=== PATIENT | male | born 1960 | race Caucasian/White ===

== ENCOUNTER 2019-08-24 14:19 | Emergency (ER) | payer OTHER, SELFPAY ==
[2019-08-24 14:19] VITALS: BP 174/106; PULSE 98; RESP 14; TEMP 36.7; O2SAT 96; BMI 26.6
--- NOTE | 2019-08-24 14:52 | ED.DCSUM_ITS ---
- ER Visit Summary Date of Service: 08/24/19 Chief Complaint: Possible compartment syndrome History of Present Illness: The patient is a 59 M who was sent to the ED for possible compartment syndrome. Around 1 PM, he was moving a heavy executive desk. Fell on his left arm. It briefly pinned his forearm. He says the area is painful and swollen. He had x-rays done which were negative, but the swelling is worsening. He was sent for possible compartment syndrome. He denies numbness or paresthesias. He is right-hand dominant. Denies blood thinner use. Physical Examination: Left distal forearm is diffusely swollen. Skin is tight and slightly shiny. There is a small abrasion in his mid dorsal left forearm, but no other injuries or lacerations. There is mild swelling into his hand. Range of motion seems to be intact. Pulses are intact. Sensation intact. Test Results: Outside x-rays were reviewed. We will check basic labs, CPK. Emergency Department Course and Treatment: Patient treated with IV fluids and morphine while awaiting results. Will contact orthopedics. Dr. Gonzales did not feel that this was compartment syndrome based on the history. I am concerned about the exam. I am concerned if the swelling worsens, he will exhibit later findings concerning for compartment syndrome. I will send the patient to [place] for further care. Had no beds available. The patient was accepted to the [facility] ED, [facility], by Dr. Raya. Treatment Plan: As above Disposition: Discharge Impression: 1. Left forearm injury This note was generated with [employer] dictation software. It may contain incorrect words, spelling, and punctuation that were not noted in review of the chart prior to signing ED Disposition - Plan for ED Patient: Referrals: Merritt Seals DO [Primary Care Provider] -
[2019-08-24] MEDS: Morphine 4 MG/ML Syringe IV (14:54)
[2019-08-24 15:06] LABS: Absolute Neutrophil Count 5.4 X10^3/uL (2.0-7.7); Basophil# 0.04 X10^3/uL; Basophil% 0.5 % (0-1); Eosinophil# 0.15 X10^3/uL; Eosinophils% 1.9 % (0-5); Hematocrit 42.9 % (40-54); Hemoglobin 14.2 g/dL (13.0-16.5); Lymphocyte % 20.1 % (19-41); Mean Corp Hgb Conc 33.1 g/dL (32-36); Mean Corpuscular Hgb 29.6 pg (27.0-32.0); Mean Corpuscular Volume 89.4 fL (80-94); Mean Platelet Vol. 9.3 fl (6.2-12.0); Monocyte# 0.74 X10^3/uL; Monocyte% 9.3 % (0-10); NRBC Flagged by Analyzer 0 % (0-5); Neutrophil # 5.39 X10^3/uL (2.7-7.7); Neutrophil % 67.7 % (47-70); Platelet Count 281 K/mm3 (150-450); RBC Distribution Width CV 12.5 % (11.6-14.6); RBC Distribution Width SD 41.2 fl (35.1-43.9)
[2019-08-24 15:31] LABS: Anion Gap 9 (5-15); BUN 19 mg/dL (7-18); BUN/Creat Ratio 20.6 RATIO (10-20); CPK Total, Creatine Kinase 265 U/L (39-308); Calcium,Total 8.9 mg/dL (8.5-10.1); Chloride 102 mmol/L (98-107); Creatinine, Serum 0.92 mg/dL (0.70-1.30); EST Glomerular Filtration Rate 89 mL/min (>60); Est Glom Filt Rate - Afr Amer 108 mL/min (>60); Estimated Creatinine Clearance 85.39 ml/min; Glucose 134 mg/dL (74-106); Sodium Level 140 mmol/L (136-145)
[2019-08-24] MEDS: 0.9% Normal Saline 1,000 ML 150 ML IV (15:45)
[2019-08-24 16:22] VITALS: BP 165/89; PULSE 82; RESP 17; O2SAT 97
== END 2019-08-24 16:24 | disposition short-term general hospital (02) ==
LOC: ED 14:55
PROVIDERS: Emergency Provider Emergency Medicine; Family Provider Family Medicine; PCP Family Medicine
DX: S59.912A Unspecified injury of left forearm, initial encounter (principal); W08.XXXA Fall from other furniture, initial encounter; Y93.9 Activity, unspecified; Y92.89 Other specified places as the place of occurrence of the external cause; Y99.9 Unspecified external cause status; Z87.891 Personal history of nicotine dependence
CPT/HCPCS: 80048; 82550; 85025; 99284; J7030; A4216

== ENCOUNTER 2022-05-22 23:29 | Observation (INO) | payer OTHER, SELFPAY ==
[2022-05-22 23:30] VITALS: BP 182/98; PULSE 98; RESP 15; TEMP 36.6; O2SAT 97; BMI 27.3
[2022-05-22 23:33] VITALS: BP 182/98; PULSE 98; RESP 15; TEMP 36.6; O2SAT 97
--- NOTE | 2022-05-22 23:56 | EDS_ITS ---
HPI HPI - GI History of Present Illness Chief Complaint: Diarrhea Informant: patient Abdominal Pain/Flank Pain Onset: Days (2) Context: Gradual Onset Timing: Waxes and wanes Quality: Aching, Cramping and Sharp Location: Diffuse (Centered around supraumbilical area) Current Severity: Moderate Maximum Severity: Moderate Worsened by: Food (Shortly after eating dinner) Nausea/Vomiting/Emesis GI Symptom: Positive for Nausea; Negative for Vomiting Diarrhea/Melena/Hematochezia GI Symptom: Positive for Diarrhea; Negative for Melena or Hematochezia Onset: Days (2-3) Stool Quality: Positive for Watery; Negative for Black, Maroon or BRB per rectum Severity: Moderate (Better today though) Associated Symptoms Associated Symptoms: Negative for Dysuria, Frequency, Hematuria or Urgency Narrative Narrative: Patient presenting with abdominal pain, diarrhea which started first, some nausea, initially he was having 8 or 10 bowel movements per day, but that is tapered although he is still having diarrhea. His was ill with vomiting and diarrhea at the beginning of the week, he is presenting on Wednesday, hers lasted 2 days or so when she was better. Initially that is what they thought was going on, but tonight after dinner he became very distended having moderate to severe diffuse crampy abdominal pain centered in the supraumbilical area, and it has not let up after several hours. No history of any abdominal surgeries or prior GI issues according to the patient. PFSH PFSH Medical History no medical history no medical history Home Medications NK 08/24/19 [History Last Taken Unknown] Allergy/AdvReac Type Severity Reaction Status Date / Time No Known Allergies Allergy Verified 05/22/22 23:33 Surgical History no surgical history no surgical history Social History Smoking Status: Former smoker ROS ROS ED Constitutional Constitutional ED: Reports malaise; Denies chills or fever(s) Eyes Eyes: Denies change in vision or diplopia ENT ENT ED: Denies rhinorrhea or sore throat Cardiovascular Cardiovascular: Denies chest pain or palpitations Respiratory/Chest Respiratory/Chest: Denies cough or dyspnea Gastrointestinal Gastrointestinal: Reports abdominal pain, bloating, diarrhea and nausea; Denies hematochezia, melena or vomiting Genitourinary Genitourinary ED: Denies dysuria or hematuria Musculoskeletal Musculoskeletal: Denies back pain or neck pain Integumentary Denies abscess or rash Neurologic Neurologic: Denies headache(s), paresthesias or weakness Psychiatric Psychiatric: Denies anxiety or suicidal thoughts EXAM Physical Exam Const Vital Signs: 05/22/22 23:30 05/22/22 23:33 Temperature 97.8 F 97.8 F Temperature Source Temporal Temporal Pulse Rate 98 98 Respiratory Rate 15 15 Blood Pressure 182/98 H 182/98 H Blood Pressure Mean 126 126 Pulse Ox 97 97 Oxygen Delivery Method Room Air Room Air Positive well nourished and well developed Constitutional Narrative: Uncomfortable, no distress General Appearance ED: well developed and NAD HEENT Reports moist mucous membranes normocephalic and atraumatic Eyes PERRL and EOMs intact bilaterally Neck full ROM and supple Resp normal respiratory effort and clear to auscultation bilaterally Cardio regular rate, regular rhythm and no murmurs GI GI Narrative: Distended. Tender supraumbilical/epigastrium. No guarding or rebound. Otherwise nontender. Auscultation: hypoactive bowel sounds Palpation: soft Back/Spine no CVA tenderness General Back: other FROM Extremity normal to inspection General Extremety ED: Negative for edema, pulses abnormal or tenderness General Extremity: Negative for edema or pulses abnormal Neuro oriented x3, CN's II-XII intact bilaterally and no sensory deficits noted Sensorium / Orientation: awake and alert Motor Exam: strength 5/5 throughout Skin no rashes or lesions noted and no wounds MDM MDM MDM Narrative Medical decision making narrative: Clinically especially since his 's had similar symptoms recently, this is mostly consistent with gastroenteritis. I obtained more of a work-up because of the unusual symptoms that he has not had since he has had gastroenteritis for the last couple days, making sure he did not develop a AAA, bowel obstruction, pancreatitis, hepatitis, or other GI disorder. The labs are unremarkable, his urine is unremarkable, he feels better after dicyclomine, Reglan, Mylanta/simethicone. CT returned showing terminal ileitis and partial small bowel obstruction. He has never had abdominal surgeries in the past. He does not have a history of Crohn's that he knows of. He does not have a surgical abdomen. I discussed with Dr. Miller with GI, he agrees with admitting the patient to observation and he will see him in consultation. In addition, the CT shows hydronephrosis and hydroureter on the left, the patient is not having symptoms or renal colic and there is no sign of an obstruction or renal insufficiency, the etiology of this is unknown but I believe is stable to follow-up with urology as an outpatient. Unknown if this has anything to do with his elevated blood pressures in the 180s, or if it was simply the fact the patient was in pain but this will continue to be monitored. Lab Data Attestation: I reviewed the patient's lab results. Labs: Laboratory Results - last 24 hr 05/23/22 05/23/22 05/23/22 00:10 00:14 00:14 WBC 10.2 RBC 5.02 Hgb 14.7 Hct 45.0 MCV 89.6 MCH 29.3 MCHC 32.7 RDW Std Deviation 41.4 RDW Coeff of Kitty 12.5 Plt Count 288 MPV 9.4 Immature Gran % (Auto) 0.300 Neut % (Auto) 79.8 H Lymph % (Auto) 10.8 L [place] % (Auto) 7.9 Eos % (Auto) 0.9 Baso % (Auto) 0.3 Absolute Neuts (auto) 8.1 H Absolute Lymphs (auto) 1.10 Nucleated RBC % 0 Sodium 136 Potassium 4.2 Chloride 103 Carbon Dioxide 29.0 Anion Gap 4 L BUN 18 Creatinine 0.90 Estim Creat Clear Calc 85.10 Est GFR (MDRD) Af Amer 109 Est GFR (MDRD) Non-Af 90 BUN/Creatinine Ratio 20.0 Glucose 126 H Calcium 9.0 Total Bilirubin 0.50 AST 18 ALT 25 Alkaline Phosphatase 59 Total Protein 7.9 Albumin 3.7 Globulin 4.2 Albumin/Globulin Ratio 0.9 Lipase 79 Urine Color Yellow Urine Clarity Clear Urine pH 6.0 Ur Specific [place] 1.020 Urine Protein 15 H Urine Glucose (UA) Normal Urine Ketones 15 H Urine Occult Blood 50 H Urine Nitrite Negative Urine Bilirubin Negative Urine Urobilinogen Normal Ur Leukocyte Esterase Negative Urine RBC 0 SEEN Urine WBC 0 SEEN Ur Squamous Epith Cells 0 SEEN Urine Bacteria 0 SEEN Urine Mucus 1+ Radiography Diagnostic Testing: Clinical Impression(s) from Imaging Studies Abdomen/Pelvis CT 05/23/22 23:54 IMPRESSION: 1. Prominent terminal ileitis with a secondary partial small bowel obstruction. 2. Sigmoid colonic diverticulosis without evidence of a colonic diverticulitis, colitis, or large intestinal obstruction. No appendicitis. 3. Moderate left hydronephrosis and left hydroureter to the level of the bladder without evidence of a calculus. 4. Moderate bladder wall thickening (9 mm thick) circumferentially with a 4.6 cm diameter very heterogeneous prostate. 5. No other significant abnormalities. Electronically Signed: Norm Barber MD at 1:53 EDT , Discharge Plan Dx/Rx/DC Orders Clinical Impression: Partial small bowel obstruction, Terminal ileitis, Hydronephrosis, left Disposition Disposition: Acute Care Hospital [facility]
[2022-05-23] MEDS: Mag Hydrox/Al Hydrox/Simeth 30 ML UDC PO (00:11)
[2022-05-23] MEDS: Metoclopramide 10 MG/2 ML Vial 5 MG IV (00:11)
[2022-05-23] MEDS: 0.9% Normal Saline 1,000 ML 1000 ML IV (00:11)
[2022-05-23] MEDS: Dicyclomine 10 MG Capsule 20 MG PO (00:11)
[2022-05-23 00:19] LABS: Bacteria 0 SEEN /hpf (None Seen); Red Blood Cells-Urine 0 SEEN /hpf (0-5); Squamous Epithelial Cells - UA 0 SEEN /hpf (0-5); White Blood Cells 0 SEEN /hpf (0-5)
[2022-05-23 00:21] LABS: Glucose, Dipstick Normal (Normal); Ketone-Dipstick 15 mg/dl (Negative); Leukocyte Esterase-Dipstick Negative /ul (Negative); Nitrite-Dipstick Negative (Negative); Occult Blood-Urine 50 /ul (Negative); Protein-Dipstick 15 mg/dl (Negative); Urine Bilirubin Dipstick Negative (Negative); Urine Urobilinogen Normal (Normal)
[2022-05-23 00:25] LABS: Absolute Neutrophil Count 8.1 X10^3/uL (2.0-7.7); Basophil# 0.03 X10^3/uL; Basophil% 0.3 % (0-1); Eosinophil# 0.09 X10^3/uL; Eosinophils% 0.9 % (0-5); Hemoglobin 14.7 g/dL (13.0-16.5); Lymphocyte % 10.8 % (19-41); Mean Corp Hgb Conc 32.7 g/dL (32-36); Mean Corpuscular Hgb 29.3 pg (27.0-32.0); Mean Corpuscular Volume 89.6 fL (80-94); Mean Platelet Vol. 9.4 fl (6.2-12.0); Monocyte% 7.9 % (0-10); NRBC Flagged by Analyzer 0 % (0-5); Neutrophil # 8.14 X10^3/uL (2.7-7.7); Neutrophil % 79.8 % (47-70); Platelet Count 288 K/mm3 (150-450); RBC Distribution Width CV 12.5 % (11.6-14.6); RBC Distribution Width SD 41.4 fl (35.1-43.9); Red Blood Count 5.02 M/mm3 (4.6-6.2); White Blood Count 10.2 K/mm3 (4.4-11.0)
[2022-05-23 00:57] LABS: Color, Urine Yellow (Yellow); Urine Clarity Clear (Clear)
[2022-05-23 01:14] LABS: ALB/GLOB Ratio 0.9 RATIO (0.9-2.4); AST(SGOT) 18 U/L (15-37); Alanine Aminotransfer ALT/SGPT 25 U/L (16-61); Albumin, Serum 3.7 g/dL (3.2-5.0); Alkaline Phosphatase 59 U/L (45-117); Anion Gap 4 (5-15); BUN 18 mg/dL (7-18); Chloride 103 mmol/L (98-107); EST Glomerular Filtration Rate 90 mL/min (>60); Est Glom Filt Rate - Afr Amer 109 mL/min (>60); Globulin 4.2 g/dL (2.2-4.2); Glucose 126 mg/dL (74-106); Lipase 79 U/L (73-393); Potassium 4.2 mmol/L (3.5-5.1); Protein, Total 7.9 g/dL (6.4-8.2); Sodium Level 136 mmol/L (136-145)
[2022-05-23 01:29] LABS: Mucous, Urine 1+ /hpf (<or=2+)
[2022-05-23 02:31] VITALS: BP 169/79; PULSE 97; RESP 15; TEMP 36.9; O2SAT 99
--- NOTE | 2022-05-23 03:20 | PCM.HP.STD ---
HPI - General General Date of Admission: 05/23/22 Date of Service: 05/23/22 Chief Complaint: Abdominal cramps and pain and diarrhea for 3 days HPI Narrative CLAUDIO AUGUSTIN, is a 61 M came to ED for worsening diarrhea and abdominal pain for 3 days. His symptoms started with abdominal pain initially in epigastric and upper abdomen and then migrated to right lower quadrant and then became generalized. Patient has intermittent cramps, colicky in nature, 7-8/10 intensity associated with diarrhea. He has mild nausea but no vomiting yet. No hematemesis melena or hematochezia. Patient has worsening diarrhea with frequency 8 to 9/day. It is clear watery, liquid consistency yellowish in color with no blood. Denies fever or chills. He further said his had stomach bug possible viral infection and he got from her. Denies coming in contact with any sick person. In ED, patient does not have fever. Heart rate in 90s, blood pressure elevated. But on floor, at about 3:30 AM temperature first time, 100.2 ?F. Patient had CT abdomen and pelvis with IV contrast, individually reviewed. Small bowel slightly edematous, inflamed and distended in pelvic area. It is officially reported as partial small bowel obstruction which I do not agree. Also reported moderate left hydronephrosis with left hydroureter without evidence of calculus which I agree. Sigmoid colonic diverticulosis without evidence of diverticulitis or large bowel obstruction. Past medical history: Borderline high blood pressure but patient not taking antihypertensive medication. Denies diabetes, [place], coronary artery disease or stroke. [facility] Medical History no medical history Home Medications NK 08/24/19 [History Last Taken Unknown] Allergy/AdvReac Type Severity Reaction Status Date / Time No Known Allergies Allergy Verified 05/22/22 23:33 Surgical History no surgical history Social History Smoking Status: Former smoker ROS ROS Narrative Constitutional: Reports fatigue and weakness. Feels dehydrated HEENT: Reports systems reviewed and no addt'l complaints, except as documented Respiratory/Chest: Denies chest pain, shortness of breath at rest or with exertion Gastrointestinal: As mentioned in HPI Genitourinary: Denies burning urination or new urinary tract symptoms. Mild decrease in urine output with deep yellow color due to dehydration Musculoskeletal: No joint pain or limited range of motion. Neurologic: Denies seizure-like activity skin: No ulcer. No rash Endocrinology: Reports systems reviewed and no addt'l complaints, except as documented Hematologic/Lymphatic: Reports systems reviewed and no addt'l complaints, except as documented Rest 14 ROS are negative except as mentioned in HPI Vital Signs Vital Signs Vital Signs: 05/22/22 23:30 05/22/22 23:33 05/23/22 02:31 Temperature 97.8 F 97.8 F 98.4 F Temperature Source Temporal Temporal Temporal Pulse Rate 98 98 97 Respiratory Rate 15 15 15 Blood Pressure 182/98 H 182/98 H 169/79 H Blood Pressure Mean 126 126 109 Pulse Ox 97 97 99 Oxygen Delivery Method Room Air Room Air Room Air Weight Weight: 185 lb Body Mass Index (BMI) 27.3 Physical Exam Narrative General: Alert, Oriented x3, Cooperative HEENT: Atraumatic, PERRLA, EOMI, Normocephalic Oral: Oral mucosa dry. No Gingival or Mucosal Lesions/ Ulcerations Neck: Supple, No JVD, Negative Carotid Bruits Lungs: Air entry equal in bilateral lung bases. No crepitation/rhonchi Cardiovascular: Regular rate, Regular Rhythm, Normal S1, Normal S2, No murmurs Abdomen: Soft, mild tenderness over right lower quadrant and hypogastrium. Bowel Sounds Present. No distention : No renal angle tenderness. No suprapubic tenderness. Extremities: No edema, Capillary Refill Less than 3 Seconds Skin: No rashes, No breakdown Musculoskeletal: No Tenderness to Palpation of Joints or Extremities. ROM intact. Neurological: Cranial nerves II-XII grossly intact, DTR 2+/4. No long tract lateralizing sign. Psych/Mental Status: Flat affect. Results Lab / Micro Data Result Diagrams: 05/23/22 00:14 05/23/22 00:14 Labs: Laboratory Results - last 24 hr 05/23/22 00:10: Urine Color Yellow, Urine Clarity Clear, Urine pH 6.0, Ur Specific [place] 1.020, Urine Protein 15 H, Urine Glucose (UA) Normal, Urine Ketones 15 H, Urine Occult Blood 50 H, Urine Nitrite Negative, Urine Bilirubin Negative, Urine Urobilinogen Normal, Ur Leukocyte Esterase Negative, Urine RBC 0 SEEN, Urine WBC 0 SEEN, Ur Squamous Epith Cells 0 SEEN, Urine Bacteria 0 SEEN, Urine Mucus 1+ 08/13/22 00:14: WBC 10.2, RBC 5.02, Hgb 14.7, Hct 45.0, MCV 89.6, MCH 29.3, MCHC 32.7, RDW Std Deviation 41.4, RDW Coeff of Kitty 12.5, Plt Count 288, MPV 9.4, Immature Gran % (Auto) 0.300, Neut % (Auto) 79.8 H, Lymph % (Auto) 10.8 L, [place] % (Auto) 7.9, Eos % (Auto) 0.9, Baso % (Auto) 0.3, Absolute Neuts (auto) 8.1 H, Absolute Lymphs (auto) 1.10, Nucleated RBC % 0 05/23/22 00:14: Sodium 136, Potassium 4.2, Chloride 103, Carbon Dioxide 29.0, Anion Gap 4 L, BUN 18, Creatinine 0.90, Estim Creat Clear Calc 85.10, Est GFR (MDRD) Af Amer 109, Est GFR (MDRD) Non-Af 90, BUN/Creatinine Ratio 20.0, Glucose 126 H, Calcium 9.0, Total Bilirubin 0.50, AST 18, ALT 25, Alkaline Phosphatase 59, Total Protein 7.9, Albumin 3.7, Globulin 4.2, Albumin/Globulin Ratio 0.9, Lipase 79 Radiology Impression Abdomen/Pelvis CT 05/23/22 23:54 IMPRESSION: 1. Prominent terminal ileitis with a secondary partial small bowel obstruction. 2. Sigmoid colonic diverticulosis without evidence of a colonic diverticulitis, colitis, or large intestinal obstruction. No appendicitis. 3. Moderate left hydronephrosis and left hydroureter to the level of the bladder without evidence of a calculus. 4. Moderate bladder wall thickening (9 mm thick) circumferentially with a 4.6 cm diameter very heterogeneous prostate. 5. No other significant abnormalities. Electronically Signed: Norm Barber MD at 1:53 EDT , Assessment & Plan Assessment/Plan (1) Acute gastroenteritis: (2) Hydronephrosis, left: PLAN: Plan This is a 61-year-old patient was admitted with progressive worsening abdominal cramps/pain along with diarrhea for last 3 days. 1. Most probably viral enteritis with other differential diagnosis of Crohn's disease/food poisoning: Patient is being admitted on [facility] floor. IV Ringer lactate for aggressive fluid resuscitation. Monitor intake and output. Clear liquid. COVID-19 PCR, bacteriology panel, stool for C. difficile ordered. Stool for occult blood and lactoferrin ordered. GI consulted from ED. Patient does not have leukocytosis. Electrolytes in normal range. 2. CT finding of left hydronephrosis with hydroureter: There is no evidence of urinary calculus. Moderate bladder wall thickening 9 mm circumferentially with 4.6 cm heterogeneous prostate. Patient might have BPH. BUN/creatinine normal. UA shows clear urine, high normal specific gravity, WBC RBC 0. LE and nitrite negative. IV fluid resuscitation. Patient might need referral for neurologist as an outpatient. 3. Essential hypertension: Patient has borderline high blood pressure as per history. start on 5 mg amlodipine. IV hydralazine for systolic blood pressure more than 180 mmHg. Avoid diuretic, ELVIN/ARB as patient is hypovolemic. Laboratory Results 05/23/22 00:10: Urine Color Yellow, Urine Clarity Clear, Urine pH 6.0, Ur Specific [place] 1.020, Urine Protein 15 H, Urine Glucose (UA) Normal, Urine Ketones 15 H, Urine Occult Blood 50 H, Urine Nitrite Negative, Urine Bilirubin Negative, Urine Urobilinogen Normal, Ur Leukocyte Esterase Negative, Urine RBC 0 SEEN, Urine WBC 0 SEEN, Ur Squamous Epith Cells 0 SEEN, Urine Bacteria 0 SEEN, Urine Mucus 1+ 05/23/22 00:14: WBC 10.2, RBC 5.02, Hgb 14.7, Hct 45.0, MCV 89.6, MCH 29.3, MCHC 32.7, RDW Std Deviation 41.4, RDW Coeff of [place] 12.5, Plt Count 288, MPV 9.4, Immature Gran % (Auto) 0.300, Neut % (Auto) 79.8 H, Lymph % (Auto) 10.8 L, [place] % (Auto) 7.9, Eos % (Auto) 0.9, Baso % (Auto) 0.3, Absolute Neuts (auto) 8.1 H, Absolute Lymphs (auto) 1.10, Nucleated RBC % 0 05/23/22 00:14: Sodium 136, Potassium 4.2, Chloride 103, Carbon Dioxide 29.0, Anion Gap 4 L, BUN 18, Creatinine 0.90, Estim Creat Clear Calc 85.10, Est GFR (MDRD) Af Amer 109, Est GFR (MDRD) Non-Af 90, BUN/Creatinine Ratio 20.0, Glucose 126 H, Calcium 9.0, Total Bilirubin 0.50, AST 18, ALT 25, Alkaline Phosphatase 59, Total Protein 7.9, Albumin 3.7, Globulin 4.2, Albumin/Globulin Ratio 0.9, Lipase 79 05/23/22 00:14: Phosphorus Pending, Magnesium Pending Charges/Coding Visit Charges OBSV E&M: 02613 Initial observation care L3 Procedures Hospitalists Procedures: 29664 Advncd Care Plan 30 Min
[2022-05-23 03:22] VITALS: BMI 27.9
[2022-05-23 03:30] VITALS: BP 180/102; PULSE 103; RESP 16; TEMP 37.9; O2SAT 97
[2022-05-23 03:35] LABS: Magnesium 2.4 mg/dL (1.6-2.6); Phosphorus 2.8 mg/dL (2.5-4.9)
[2022-05-23] MEDS: Lactated Ringers 1,000 ML 125 ML IV ×2 (03:37→11:54)
[2022-05-23] MEDS: amLODIPine 5 MG Tablet PO ×2 (04:25→10:33)
[2022-05-23] MEDS: Enoxaparin 40 MG/0.4 ML Syringe SC (04:26)
[2022-05-23 06:30] LABS: Absolute Lymphocyte Count 0.69 X10^3/uL (0.83-4.51); Absolute Neutrophil Count 5.4 X10^3/uL (2.0-7.7); Basophil# 0.01 X10^3/uL; Basophil% 0.1 % (0-1); Eosinophil# 0.03 X10^3/uL; Eosinophils% 0.4 % (0-5); Hematocrit 41.2 % (40-54); Hemoglobin 13.8 g/dL (13.0-16.5); Lymphocyte # 0.69 X10^3/ul (0.83-4.51); Lymphocyte % 9.5 % (19-41); Mean Corp Hgb Conc 33.5 g/dL (32-36); Mean Corpuscular Hgb 29.2 pg (27.0-32.0); Mean Corpuscular Volume 87.1 fL (80-94); Mean Platelet Vol. 9.4 fl (6.2-12.0); Monocyte# 1.09 X10^3/uL; NRBC Flagged by Analyzer 0 % (0-5); Neutrophil # 5.43 X10^3/uL (2.7-7.7); Neutrophil % 74.6 % (47-70); Platelet Count 258 K/mm3 (150-450); RBC Distribution Width CV 12.2 % (11.6-14.6); RBC Distribution Width SD 39.4 fl (35.1-43.9); Red Blood Count 4.73 M/mm3 (4.6-6.2); White Blood Count 7.3 K/mm3 (4.4-11.0)
[2022-05-23 06:58] LABS: Anion Gap 6 (5-15); BUN 15 mg/dL (7-18); BUN/Creat Ratio 18.5 RATIO (10-20); Calcium,Total 8.6 mg/dL (8.5-10.1); Chloride 103 mmol/L (98-107); Creatinine, Serum 0.81 mg/dL (0.70-1.30); EST Glomerular Filtration Rate 102 mL/min (>60); Est Glom Filt Rate - Afr Amer 123 mL/min (>60); Estimated Creatinine Clearance 94.56 ml/min; Glucose 132 mg/dL (74-106); Potassium 3.9 mmol/L (3.5-5.1); Sodium Level 136 mmol/L (136-145)
[2022-05-23 10:27] VITALS: BP 138/78; PULSE 88; RESP 20; TEMP 36.1; O2SAT 96
--- NOTE | 2022-05-23 13:23 | PCM.CONS.GEN ---
Assessment & Plan Assessment/Plan (1) Terminal ileitis: PLAN: The differential diagnosis for terminal ileitis would be inflammatory bowel disease in particular Crohn's disease of the terminal ileum, Yersinia infection of the small bowel and other enteric pathogens, lymphoma or other small bowel. His stool studies thus far show blood in his stool and white blood cells which could indicate infection or inflammatory bowel disease and less likely malignancy. I would await his stool culture to see if it is positive for infection. I will also send ESR, CRP, LDH, ANCA, AUSTEN comprehensive metabolic profile. Patient would like a lot of the work-up if possible at [facility] because his is an employee there. (2) Partial small bowel obstruction: PLAN: Patient's abdomen is a little bit softer as he has been having bowel movements. He has been able to decompress somewhat without the use of an NG tube. I think he would benefit from a colonoscopy with intubation of the terminal ileum with biopsies. I will wait to see what the stool studies show. HPI Consult Data Date of Consult: 05/23/22 HPI Narrative Reason for Consultation: bowel obstruction HPI Narrative: CLAUDIO AUGUSTIN, is a 61 M who presents with abdominal pain, diarrhea which started first, some nausea, initially he was having 8 or 10 bowel movements per day, but that is tapered although he is still having diarrhea.? She denied any fevers or chills. Denies any chest pain or shortness of breath. His was ill with vomiting and diarrhea at the beginning of the week. She got better within 2 days. However he started feeling bad on Wednesday with abdominal pain, bloating and diarrhea. Initially that is what they thought was going on, but tonight after dinner he became very distended having moderate to severe diffuse crampy abdominal pain centered in the supraumbilical area, and it has not let up after several hours.? No history of any abdominal surgeries or prior GI issues according to the patient. CT scan of the abdomen pelvis displayed a food filled stomach and duodenum. There are findings of a prominent terminal ileitis with a partial small bowel obstruction secondary to the ileitis. There is sigmoid colonic diverticulosis without evidence of a diverticulitis, colitis, or large intestinal obstruction. The appendix is visualized and appears normal; no appendicitis. All other 16 review of systems are negative except those pertinent positive mentioned HPI. [facility] Medical History (Updated 05/23/22 @ 03:48 by Marlon Marinelli) Compartment syndrome CARLOS (obstructive sleep apnea) Medical History no medical history Home Medications NK 08/24/19 [History Last Taken Unknown] Allergy/AdvReac Type Severity Reaction Status Date / Time No Known Allergies Allergy Verified 05/22/22 23:33 Surgical History (Updated 05/23/22 @ 03:48 by Marlon Marinelli) H/O shoulder surgery Surgical History no surgical history Social History Smoking Status: Former smoker ROS ROS Narrative Constitutional: Reports fatigue and weakness. Feels dehydrated HEENT: Reports systems reviewed and no addt'l complaints, except as documented Respiratory/Chest: Denies chest pain, shortness of breath at rest or with exertion Gastrointestinal: As mentioned in HPI Genitourinary: Denies burning urination or new urinary tract symptoms. Mild decrease in urine output with deep yellow color due to dehydration Musculoskeletal: No joint pain or limited range of motion. Neurologic: Denies seizure-like activity skin: No ulcer. No rash Endocrinology: Reports systems reviewed and no addt'l complaints, except as documented Hematologic/Lymphatic: Reports systems reviewed and no addt'l complaints, except as documented Rest 14 ROS are negative except as mentioned in HPI Physical Exam Narrative General: Alert, Oriented x3, Cooperative HEENT: Atraumatic, PERRLA, EOMI, Normocephalic Oral: Oral mucosa dry. No Gingival or Mucosal Lesions/ Ulcerations Neck: Supple, No JVD, Negative Carotid Bruits Lungs: Air entry equal in bilateral lung bases. No crepitation/rhonchi Cardiovascular: Regular rate, Regular Rhythm, Normal S1, Normal S2, No murmurs Abdomen: Soft, mild tenderness over right lower quadrant and hypogastrium. Bowel Sounds Present. No distention : No renal angle tenderness. No suprapubic tenderness. Extremities: No edema, Capillary Refill Less than 3 Seconds Skin: No rashes, No breakdown Musculoskeletal: No Tenderness to Palpation of Joints or Extremities. ROM intact. Neurological: Cranial nerves II-XII grossly intact, DTR 2+/4. No long tract lateralizing sign. Psych/Mental Status: Flat affect. Lab / Micro Data Result Diagrams: 05/23/22 06:20 05/23/22 06:20 Labs: Laboratory Results - last 24 hr 05/23/22 00:10: Urine Color Yellow, Urine Clarity Clear, Urine pH 6.0, Ur Specific [place] 1.020, Urine Protein 15 H, Urine Glucose (UA) Normal, Urine Ketones 15 H, Urine Occult Blood 50 H, Urine Nitrite Negative, Urine Bilirubin Negative, Urine Urobilinogen Normal, Ur Leukocyte Esterase Negative, Urine RBC 0 SEEN, Urine WBC 0 SEEN, Ur Squamous Epith Cells 0 SEEN, Urine Bacteria 0 SEEN, Urine Mucus 1+ 05/23/22 00:14: WBC 10.2, RBC 5.02, Hgb 14.7, Hct 45.0, MCV 89.6, MCH 29.3, MCHC 32.7, RDW Std Deviation 41.4, RDW Coeff of [place] 12.5, Plt Count 288, MPV 9.4, Immature Gran % (Auto) 0.300, Neut % (Auto) 79.8 H, Lymph % (Auto) 10.8 L, [place] % (Auto) 7.9, Eos % (Auto) 0.9, Baso % (Auto) 0.3, Absolute Neuts (auto) 8.1 H, Absolute Lymphs (auto) 1.10, Nucleated RBC % 0 05/23/22 00:14: Sodium 136, Potassium 4.2, Chloride 103, Carbon Dioxide 29.0, Anion Gap 4 L, BUN 18, Creatinine 0.90, Estim Creat Clear Calc 85.10, Est GFR (MDRD) Af Amer 109, Est GFR (MDRD) Non-Af 90, BUN/Creatinine Ratio 20.0, Glucose 126 H, Calcium 9.0, Total Bilirubin 0.50, AST 18, ALT 25, Alkaline Phosphatase 59, Total Protein 7.9, Albumin 3.7, Globulin 4.2, Albumin/Globulin Ratio 0.9, Lipase 79 05/23/22 00:14: Phosphorus 2.8, Magnesium 2.4 05/23/22 04:15: COVID-19 (SHAHID) Not Detected 05/23/22 06:20: WBC 7.3, RBC 4.73, Hgb 13.8, Hct 41.2, MCV 87.1, MCH 29.2, MCHC 33.5, RDW Std Deviation 39.4, RDW Coeff of [place] 12.2, Plt Count 258, MPV 9.4, Immature Gran % (Auto) 0.400, Neut % (Auto) 74.6 H, Lymph % (Auto) 9.5 L, [place] % (Auto) 15.0 H, Eos % (Auto) 0.4, Baso % (Auto) 0.1, Absolute Neuts (auto) 5.4, Absolute Lymphs (auto) 0.69 L, Nucleated RBC % 0 05/23/22 06:20: Sodium 136, Potassium 3.9, Chloride 103, Carbon Dioxide 27.0, Anion Gap 6, BUN 15, Creatinine 0.81, Estim Creat Clear Calc 94.56, Est GFR (MDRD) Af Amer 123, Est GFR (MDRD) Non-Af 102, BUN/Creatinine Ratio 18.5, Glucose 132 H, Calcium 8.6 Micro: Microbiology 05/23/22 04:00 Stool Stool Lactoferrin - Final 05/23/22 04:00 Stool C. difficile DNA Amplification - Final 05/23/22 04:00 Stool Stool Occult Blood (PRINCESS) - Final Occult Blood Positive Radiology Impression Abdomen/Pelvis CT 05/23/22 23:54 IMPRESSION: 1. Prominent terminal ileitis with a secondary partial small bowel obstruction. 2. Sigmoid colonic diverticulosis without evidence of a colonic diverticulitis, colitis, or large intestinal obstruction. No appendicitis. 3. Moderate left hydronephrosis and left hydroureter to the level of the bladder without evidence of a calculus. 4. Moderate bladder wall thickening (9 mm thick) circumferentially with a 4.6 cm diameter very heterogeneous prostate. 5. No other significant abnormalities. Electronically Signed: Norm Barber MD at 1:53 EDT , Charges/Coding Visit Charges Inpatient E&M: 40942 Init Hosp L2
--- NOTE | 2022-05-23 13:52 | PN.HOSP_ITS ---
Subjective Subjective Patient seen and examined. Still complaining of generalized abdominal pain and had several episodes of diarrhea today. He states anything that he eats comes out as diarrhea. Review of systems otherwise negative. Objective Data Objective Data Vital Signs: Vital Signs Temp Pulse Resp BP Pulse Ox O2 Del Method 97.0 F L 88 20 H 138/78 H 96 Room Air 05/23/22 10:27 05/23/22 10:27 05/23/22 10:27 05/23/22 10:27 05/23/22 10:27 05/23/22 10:27 Oxygen Delivery Method Room Air Weight: 189 lb 2.506 oz Body Mass Index (BMI) 27.9 Intake & Output: Intake and Output for Last 24 Hours 05/21/22 05/22/22 05/23/22 23:59 23:59 23:59 Intake Total 2420 / 2420 Balance 2420 / 2420 Lab / Micro Data Result Diagrams: 05/23/22 06:20 05/23/22 06:20 Labs: Laboratory Results - last 24 hr 05/23/22 00:10: Urine Color Yellow, Urine Clarity Clear, Urine pH 6.0, Ur Specific [place] 1.020, Urine Protein 15 H, Urine Glucose (UA) Normal, Urine Ketones 15 H, Urine Occult Blood 50 H, Urine Nitrite Negative, Urine Bilirubin Negative, Urine Urobilinogen Normal, Ur Leukocyte Esterase Negative, Urine RBC 0 SEEN, Urine WBC 0 SEEN, Ur Squamous Epith Cells 0 SEEN, Urine Bacteria 0 SEEN, Urine Mucus 1+ 05/23/22 00:14: WBC 10.2, RBC 5.02, Hgb 14.7, Hct 45.0, MCV 89.6, MCH 29.3, MCHC 32.7, RDW Std Deviation 41.4, RDW Coeff of [place] 12.5, Plt Count 288, MPV 9.4, Immature Gran % (Auto) 0.300, Neut % (Auto) 79.8 H, Lymph % (Auto) 10.8 L, [place] % (Auto) 7.9, Eos % (Auto) 0.9, Baso % (Auto) 0.3, Absolute Neuts (auto) 8.1 H, Absolute Lymphs (auto) 1.10, Nucleated RBC % 0 05/23/22 00:14: Sodium 136, Potassium 4.2, Chloride 103, Carbon Dioxide 29.0, Anion Gap 4 L, BUN 18, Creatinine 0.90, Estim Creat Clear Calc 85.10, Est GFR (MDRD) Af Amer 109, Est GFR (MDRD) Non-Af 90, BUN/Creatinine Ratio 20.0, Glucose 126 H, Calcium 9.0, Total Bilirubin 0.50, AST 18, ALT 25, Alkaline Phosphatase 59, Total Protein 7.9, Albumin 3.7, Globulin 4.2, Albumin/Globulin Ratio 0.9, Lipase 79 05/23/22 00:14: Phosphorus 2.8, Magnesium 2.4 05/23/22 04:15: COVID-19 (SHAHID) Not Detected 05/23/22 06:20: WBC 7.3, RBC 4.73, Hgb 13.8, Hct 41.2, MCV 87.1, MCH 29.2, MCHC 33.5, RDW Std Deviation 39.4, RDW Coeff of [place] 12.2, Plt Count 258, MPV 9.4, Immature Gran % (Auto) 0.400, Neut % (Auto) 74.6 H, Lymph % (Auto) 9.5 L, [place] % (Auto) 15.0 H, Eos % (Auto) 0.4, Baso % (Auto) 0.1, Absolute Neuts (auto) 5.4, Absolute Lymphs (auto) 0.69 L, Nucleated RBC % 0 05/23/22 06:20: Sodium 136, Potassium 3.9, Chloride 103, Carbon Dioxide 27.0, Anion Gap 6, BUN 15, Creatinine 0.81, Estim Creat Clear Calc 94.56, Est GFR (MDRD) Af Amer 123, Est GFR (MDRD) Non-Af 102, BUN/Creatinine Ratio 18.5, Glucose 132 H, Calcium 8.6 05/23/22 06:20: C-React Prot Ext Range 18.80 H Micro: Microbiology 05/23/22 04:00 Stool Stool Lactoferrin - Final 05/23/22 04:00 Stool C. difficile DNA Amplification - Final 05/23/22 04:00 Stool Stool Occult Blood (PRINCESS) - Final Occult Blood Positive Radiography Diagnostic Testing: Radiology Impression Abdomen/Pelvis CT 05/23/22 23:54 IMPRESSION: 1. Prominent terminal ileitis with a secondary partial small bowel obstruction. 2. Sigmoid colonic diverticulosis without evidence of a colonic diverticulitis, colitis, or large intestinal obstruction. No appendicitis. 3. Moderate left hydronephrosis and left hydroureter to the level of the bladder without evidence of a calculus. 4. Moderate bladder wall thickening (9 mm thick) circumferentially with a 4.6 cm diameter very heterogeneous prostate. 5. No other significant abnormalities. Electronically Signed: Norm Barber MD at 1:53 EDT , Physical Exam Const alert, oriented x3 and no apparent distress HEENT head/scalp atraumatic, moist oral mucous membranes and oropharynx normal Head and Scalp: normocephalic Mouth: oral and palatal mucosa normal Eyes PERRL, EOMs intact bilaterally and conjunctivae normal Neck no lymphadenopathy, supple and no JVD Resp normal respiratory effort, no retractions, no use of accessory muscles and clear to auscultation bilaterally Cardio regular rate, regular rhythm, S1 normal heart sound, S2 normal heart sound and no murmurs GI normal to inspection, nondistended, normoactive bowel sounds, soft to palpation, non-tender and non-distended Extremity normal to inspection, full ROM and no clubbing, cyanosis or edema Neuro oriented x3, CN's II-XII intact bilaterally, moves all extremities, no focal motor deficits and no sensory deficits noted Sensorium / Orientation: awake and alert Motor Exam: strength 5/5 throughout Psych affect normal Assessment & Plan Assessment/Plan (1) Terminal ileitis: (2) Hydronephrosis, left: (3) Partial small bowel obstruction: (4) Acute gastroenteritis: PLAN: Plan #gastroenteritis, likely viral * still having diarrhea. * CT abdomen showed terminal ilieitis and evidence of left hydronephrosis; terminal ilieitis concerning for IBD. * gastroenterology consulted. * continue gentle hydration with IVF * continue keeping NPO for now * #Left hydronephrosis * CT of the abdomen showed left hydronephrosis with hydroureter. There was no evidence of urinary calculus and had moderate bladder wall thickening 9 mm circumferentially with 4.6 cm heterogeneous prostate. * Will consult urology. * #Hypertension: Started on amlodipine 5 mg daily as blood pressure is elevated. IV hydralazine prn\ DVT prophylaxis: lovenox Charges/Coding Visit Charges Inpatient E&M: 70073 Subs Hosp L2
[2022-05-23 14:58] LABS: Erythrocyte Sedimentation Rate 23 mm/hr (0-20)
[2022-05-23 16:17] VITALS: BP 169/94; PULSE 85; RESP 18; TEMP 37.4; O2SAT 100
[2022-05-23 21:04] VITALS: BP 141/93; PULSE 84; RESP 18; TEMP 36.3; O2SAT 97
--- NOTE | 2022-05-23 23:54 | CT_ITS ---
STUDY: CT ABDOMEN AND PELVIS WITH CONTRAST ENHANCEMENT FROM 0122 HOURS ON 05/23/2022 REASON FOR EXAM: 61-year-old male with abdominal distention, nausea, and diffuse abdominal pain. RADIATION DOSAGE (If Supplied By Facility): CTDIvol = ( 17.97 ) mGy, DLP = ( 1898.22 ) mGycm. TECHNIQUE: Transaxial images were obtained from the dome of the diaphragm to the symphysis pubis without oral contrast. 100 cc of Isovue 370 were administered intravenously.. Sagittal and coronal images were reconstructed. Individualized dose optimization techniques were used for this CT. COMPARISON: None. FINDINGS: The visualized lung bases are unremarkable. The visualized portions of the heart are within normal limits. 1.1 cm lobulated cyst in the inferior right hepatic lobe laterally. No other hepatic cystic or solid mass lesions. Normal gallbladder and extrahepatic biliary system; no cholelithiasis or cholecystitis. Normal spleen. Normal pancreas; no pancreatitis or pancreatic mass lesions. Normal bilateral adrenal glands. Normal right kidney. 1.3 cm in diameter simple cyst in the inferior pole of the left kidney.. Moderate left hydronephrosis and mild left hydroureter to the level of the bladder. No demonstration of calculi. There is a moderately thickened bladder wall circumferentially measuring 9 mm in thickness. There is a 4.6 cm diameter very heterogeneous prostate. Food filled stomach and duodenum. There are findings of a prominent terminal ileitis with a partial small bowel obstruction secondary to the ileitis. There is sigmoid colonic diverticulosis without evidence of a diverticulitis, colitis, or large intestinal obstruction. The appendix is visualized and appears normal; no appendicitis. The appendix is best visualized on image 51 in the axial projections.. Partially calcified abdominal aorta without aneurysm or dissection. Normal inferior vena cava. Normal retroperitoneum. Normal abdominal wall. Moderate ten-year bridging osteophyte anteriorly at the L2/3 level. Normal pelvic bones. No hip fractures or dislocations. CT/Abdomen/Pelvis W IV Cont ONLY IMPRESSION: 1. Prominent terminal ileitis with a secondary partial small bowel obstruction. 2. Sigmoid colonic diverticulosis without evidence of a colonic diverticulitis, colitis, or large intestinal obstruction. No appendicitis. 3. Moderate left hydronephrosis and left hydroureter to the level of the bladder without evidence of a calculus. 4. Moderate bladder wall thickening (9 mm thick) circumferentially with a 4.6 cm diameter very heterogeneous prostate. 5. No other significant abnormalities. Electronically Signed: Norm Barber MD at 1:53 EDT ,
[2022-05-24 03:07] VITALS: BP 141/84; PULSE 84; RESP 18; TEMP 36.7; O2SAT 99
[2022-05-24] MEDS: Enoxaparin 40 MG/0.4 ML Syringe SC (06:07)
[2022-05-24 06:15] LABS: Absolute Lymphocyte Count 1.35 X10^3/uL (0.83-4.51); Absolute Neutrophil Count 2.4 X10^3/uL (2.0-7.7); Basophil# 0.01 X10^3/uL; Basophil% 0.2 % (0-1); Eosinophil# 0.12 X10^3/uL; Eosinophils% 2.6 % (0-5); Hematocrit 41.9 % (40-54); Hemoglobin 13.9 g/dL (13.0-16.5); Lymphocyte # 1.35 X10^3/ul (0.83-4.51); Lymphocyte % 28.9 % (19-41); Mean Corp Hgb Conc 33.2 g/dL (32-36); Mean Corpuscular Hgb 29.4 pg (27.0-32.0); Mean Corpuscular Volume 88.8 fL (80-94); Mean Platelet Vol. 9.6 fl (6.2-12.0); Monocyte# 0.73 X10^3/uL; Monocyte% 15.6 % (0-10); NRBC Flagged by Analyzer 0 % (0-5); Neutrophil # 2.44 X10^3/uL (2.7-7.7); Neutrophil % 52.3 % (47-70); Platelet Count 286 K/mm3 (150-450); RBC Distribution Width CV 12.3 % (11.6-14.6); RBC Distribution Width SD 40.4 fl (35.1-43.9); Red Blood Count 4.72 M/mm3 (4.6-6.2); White Blood Count 4.7 K/mm3 (4.4-11.0)
[2022-05-24 06:37] LABS: Anion Gap 6 (5-15); BUN 15 mg/dL (7-18); BUN/Creat Ratio 17.9 RATIO (10-20); Calcium,Total 8.5 mg/dL (8.5-10.1); Chloride 103 mmol/L (98-107); Creatinine, Serum 0.84 mg/dL (0.70-1.30); EST Glomerular Filtration Rate 98 mL/min (>60); Est Glom Filt Rate - Afr Amer 119 mL/min (>60); Estimated Creatinine Clearance 91.18 ml/min; Glucose 92 mg/dL (74-106); Potassium 3.9 mmol/L (3.5-5.1); Sodium Level 137 mmol/L (136-145)
[2022-05-24 08:31] VITALS: O2SAT 95
[2022-05-24 09:53] VITALS: BP 141/85; PULSE 98; RESP 18; TEMP 36.3; O2SAT 97
[2022-05-24] MEDS: amLODIPine 10 MG Tablet PO (09:54)
--- NOTE | 2022-05-24 11:06 | PN.HOSP_ITS ---
Subjective Subjective Patient seen and examined. He says his abdominal pain is much better and he feels much better. He has not had any more diarrhea. He denies any fever, chills, nausea or vomiting. Review of systems otherwise negative. He has remained hemodynamically stable. Objective Data Objective Data Vital Signs: Vital Signs Temp Pulse Resp BP Pulse Ox O2 Del Method 97.3 F L 98 18 141/85 H 97 Room Air 05/24/22 09:53 05/24/22 09:53 05/24/22 09:53 05/24/22 09:53 05/24/22 09:53 05/24/22 09:53 Oxygen Delivery Method Room Air Weight: 185 lb 10.067 oz Body Mass Index (BMI) 27.9 Intake & Output: Intake and Output for Last 24 Hours 05/22/22 05/23/22 05/24/22 23:59 23:59 23:59 Intake Total 3700.83 / 3700.83 700 / 700 Balance 3700.83 / 3700.83 700 / 700 Lab / Micro Data Result Diagrams: 05/24/22 05:44 05/24/22 05:44 Labs: Laboratory Results - last 24 hr 05/23/22 06:20: ESR 23 H 05/23/22 06:20: C-React Prot Ext Range 18.80 H 05/24/22 05:44: WBC 4.7, RBC 4.72, Hgb 13.9, Hct 41.9, MCV 88.8, MCH 29.4, MCHC 33.2, RDW Std Deviation 40.4, RDW Coeff of [place] 12.3, Plt Count 286, MPV 9.6, Immature Gran % (Auto) 0.400, Neut % (Auto) 52.3, Lymph % (Auto) 28.9, [place] % (Auto) 15.6 H, Eos % (Auto) 2.6, Baso % (Auto) 0.2, Absolute Neuts (auto) 2.4, Absolute Lymphs (auto) 1.35, Nucleated RBC % 0 05/24/22 05:44: Sodium 137, Potassium 3.9, Chloride 103, Carbon Dioxide 28.0, Anion Gap 6, BUN 15, Creatinine 0.84, Estim Creat Clear Calc 91.18, Est GFR (MDRD) Af Amer 119, Est GFR (MDRD) Non-Af 98, BUN/Creatinine Ratio 17.9, Glucose 92, Calcium 8.5 Micro: Microbiology 05/23/22 04:00 Stool Stool Lactoferrin - Final 05/23/22 04:00 Stool Enteric Bacteriology - Final 05/23/22 04:00 Stool C. difficile DNA Amplification - Final 05/23/22 04:00 Stool Stool Occult Blood (PRINCESS) - Final Occult Blood Positive Physical Exam Const alert, oriented x3 and no apparent distress HEENT head/scalp atraumatic, moist oral mucous membranes and oropharynx normal Head and Scalp: normocephalic Mouth: oral and palatal mucosa normal Eyes PERRL, EOMs intact bilaterally and conjunctivae normal Neck no lymphadenopathy, supple and no JVD Resp normal respiratory effort, no retractions, no use of accessory muscles and clear to auscultation bilaterally Cardio regular rate, regular rhythm, S1 normal heart sound, S2 normal heart sound and no murmurs GI normal to inspection, nondistended, normoactive bowel sounds, soft to palpation, non-tender and non-distended Extremity normal to inspection, full ROM and no clubbing, cyanosis or edema Neuro oriented x3, CN's II-XII intact bilaterally, moves all extremities, no focal motor deficits and no sensory deficits noted Sensorium / Orientation: awake and alert Motor Exam: strength 5/5 throughout Psych affect normal Assessment & Plan Assessment/Plan (1) Terminal ileitis: (2) Hydronephrosis, left: (3) Partial small bowel obstruction: (4) Acute gastroenteritis: PLAN: Plan #gastroenteritis, likely viral * diarrhea has improved * CT abdomen showed terminal ilieitis and evidence of left hydronephrosis; terminal ilieitis concerning for IBD. * gastroenterology on board. Recommends colonoscopy. Patient wants to know if his insurance will cover it all whilst he is in [facility]; otherwise, he would want to do it on outpatient basis through the [facility] as that is where his works and that is where his insurance is from. Advised him that case management will be here tomorrow to help clarify this. * continue gentle hydration with IVF * on clear liquid diet, await GI recommendations to advance diet * #Left hydronephrosis * CT of the abdomen showed left hydronephrosis with hydroureter. There was no evidence of urinary calculus and had moderate bladder wall thickening 9 mm circumferentially with 4.6 cm heterogeneous prostate. * Will consult urology. * #Hypertension: on amlodipine 5 mg daily as blood pressure is elevated. IV hydralazine prn\ DVT prophylaxis: lovenox Charges/Coding Visit Charges Inpatient E&M: 66358 Subs Hosp L2
--- NOTE | 2022-05-24 16:05 | PCM.DC.SUM ---
Providers Date of Admission: 05/23/22 Date of Discharge: 05/24/22 Primary Care Physician: MARIAH Chao Consultations 05/23/22 03:21 Consult: Gastroenterology Routine Consulting Provider: [facility] Reason for Consult: diarrhea worsing, abd pain. ileitis, viral infection EMERGENT Consult: No Notified: Yes Date Notified: 05/23/22 Time Notified: 03:18 Method of Notification: ED Physician Initiated 05/24/22 11:13 Consult: Urology Routine Consulting Provider: James Faye Reason for Consult: left hydronephrosis EMERGENT Consult: No Notified: Yes Date Notified: 05/24/22 Time Notified: 11:13 Method of Notification: Text Reason For Visit: DIARRHEA, TERMINAL ILEITIS Diagnosis Discharge Diagnosis (1) Terminal ileitis: Status: Acute Code(s): K50.00 - Crohn's disease of small intestine without complications (2) Hydronephrosis, left: Status: Acute Code(s): N13.30 - Unspecified hydronephrosis (3) Partial small bowel obstruction: Status: Acute Code(s): K56.600 - Partial intestinal obstruction, unspecified as to cause (4) Acute gastroenteritis: Status: Acute Code(s): K52.9 - Noninfective gastroenteritis and colitis, unspecified Plan #gastroenteritis, likely viral diarrhea has improved CT abdomen showed terminal ilieitis and evidence of left hydronephrosis; terminal ilieitis concerning for IBD. gastroenterology on board. Recommends colonoscopy. Patient wants to know if his insurance will cover it all whilst he is in [facility]; otherwise, he would want to do it on outpatient basis through the [facility] system as that is where his works and that is where his insurance is from. Advised him that case management will be here tomorrow to help clarify this. continue gentle hydration with IVF on clear liquid diet, await GI recommendations to advance diet #Left hydronephrosis CT of the abdomen showed left hydronephrosis with hydroureter. There was no evidence of urinary calculus and had moderate bladder wall thickening 9 mm circumferentially with 4.6 cm heterogeneous prostate. Will consult urology. #Hypertension: on amlodipine 5 mg daily as blood pressure is elevated. IV hydralazine prn\ DVT prophylaxis: lovenox Medications at Discharge Home Medications amlodipine 10 mg tablet 10 mg PO DAILY #30 tabs 05/24/22 Hospital Course Operations None Procedures None Summary of Care Provided Minutes Spent on Discharge: 45 Hospital Course: Patient is a 61 y/o M with a PMH as outlined who was admitted via the ED on 05/23/2022 with a complaint of worsening diarrhea and abdominal pain for 3 days prior to admission. Pain was mainly in the epigastric and upper abdomen that migrated to right lower quadrant and then became generalised. He had associated nausea but no vomiting. Diarrhea had been worsening. He had no associated fever chills or chills. His had had a stomach bug and he thought he caught it from her. He had no associated fever. CT of the abdomen and pelvis showed slightly edematous small bowel, with inflammation and distension in pelvic area, and was officially read as partial small bowel obstruction and moderate left hydronephrosis with left hydroureter without evidence of calculus, sigmoid colonic diverticulosis without evidence of diverticulitis or large bowel obstruction. He was admitted and managed for gastroenteritis. Stool studies were ordered, and he was hydrated with IVF and kept NPO initially. CT scan also showed evidence of terminal ilieitis. Gastroenterology was consulted. C diff test was negative, and stool for enteric pathogens was also negative. Stool for occult blood was positive, which was likely due to diarrhea. He was also started on PO amlodipine 10mg daily due to elevated BP. Abdominal pain resolved and he felt much better. He was started on a clear liquid diet and gradually advance which he tolerated. Gastroenterology recommended colonoscopy to evaluate terminal ileitis further. Patient wanted to have the colonoscopy done through the [facility] system as that is where his works and that is where his insurance was formed. Gastroenterology was okay with patient being discharged to have colonoscopy on outpatient basis. Patient was therefore discharged on 05/24/2022. He is to follow-up with his primary care doctor to be referred to gastroenterology and the [facility] system for colonoscopy to be ordered. Patient seen and examined prior to discharge. He had no active complaints and had an uneventful night. He felt well and review of systems otherwise negative. Labs and vitals reviewed. Home medication reviewed and reconciled. He was discharged with a prescription for p.o. amlodipine 10 mg daily. Physical Exam Const alert, oriented x3 and no apparent distress General Appearance: cooperative, comfortable and well kempt Orientation / Consciousness: awake Exam Limitations: no limitations HEENT normocephalic, head/scalp atraumatic, hearing grossly normal bilaterally, moist oral mucous membranes and oropharynx normal Mouth: oral and palatal mucosa normal Eyes PERRL, EOMs intact bilaterally and conjunctivae normal Neck no lymphadenopathy, supple and no JVD Resp normal respiratory effort, no retractions, no use of accessory muscles and clear to auscultation bilaterally Cardio regular rate, regular rhythm, S1 normal heart sound, S2 normal heart sound and no murmurs GI normal to inspection, nondistended, normoactive bowel sounds, soft to palpation, non-tender and non-distended Extremity normal to inspection, full ROM and no clubbing, cyanosis or edema Skin no rashes or lesions noted Neuro oriented x3, CN's II-XII intact bilaterally, moves all extremities, no focal motor deficits and no sensory deficits noted Sensorium / Orientation: awake and alert Motor Exam: strength 5/5 throughout Psych affect normal Weight / BMI Weight Weight: 185 lb 10.067 oz Body Mass Index (BMI) 27.9 ABG / Lab / Microbiology Data Result Diagrams: 05/24/22 05:44 05/24/22 05:44 Laboratory: Laboratory Results - last 24 hr 05/24/22 05:44: WBC 4.7, RBC 4.72, Hgb 13.9, Hct 41.9, MCV 88.8, MCH 29.4, MCHC 33.2, RDW Std Deviation 40.4, RDW Coeff of Kitty 12.3, Plt Count 286, MPV 9.6, Immature Gran % (Auto) 0.400, Neut % (Auto) 52.3, Lymph % (Auto) 28.9, Rowan % (Auto) 15.6 H, Eos % (Auto) 2.6, Baso % (Auto) 0.2, Absolute Neuts (auto) 2.4, Absolute Lymphs (auto) 1.35, Nucleated RBC % 0 05/24/22 05:44: Sodium 137, Potassium 3.9, Chloride 103, Carbon Dioxide 28.0, Anion Gap 6, BUN 15, Creatinine 0.84, Estim Creat Clear Calc 91.18, Est GFR (MDRD) Af Amer 119, Est GFR (MDRD) Non-Af 98, BUN/Creatinine Ratio 17.9, Glucose 92, Calcium 8.5 Microbiology: Microbiology 08/13/22 04:00 Stool Stool Lactoferrin - Final 05/23/22 04:00 Stool Enteric Bacteriology - Final 05/23/22 04:00 Stool C. difficile DNA Amplification - Final 05/23/22 04:00 Stool Stool Occult Blood (PRINCESS) - Final Occult Blood Positive D/C Instructions Discharge Diet: Low fat / Low cholesterol Discharge Activity: Return to Normal Activity Weight Bearing Status: Weight bearing as tolerated Meaningful Use Info Meaningful Use Diagnoses (Choose all that apply): None applicable Discharge Plan Admission Admit Date/Time: 05/23/22 02:28 Primary Reason for Your Visit: gastroenteritis, terminal ileitis Attending Provider: Chiara Bennett Primary Care Provider: Cathryn Laurent Consulting Providers: Homar Tuttle ; James Faye Instructions Patient Instructions: ED Diarrhea, Viral (Adult) Discharge Orders/Prescriptions Prescriptions: New amlodipine 10 mg Tablet 10 mg PO DAILY Qty: 30 1RF Referrals / Follow Up: Merritt Seals DO [Non-Staff] - In 1 Week Cathryn Laurent, PA [Primary Care Provider] - Within 1 Week Disposition Disposition (needs filled in before D/C Order can be placed): Home, Self Care Charges/Coding Visit Charges Inpatient E&M: 16866 Disch Hosp
[2022-05-24 16:42] VITALS: BP 152/92; PULSE 90; RESP 16; TEMP 37; O2SAT 97
[2022-05-26 12:08] LABS: Anti-Centromere B Ab <0.2 AI (0.0-0.9); Anti-Chromatin 0.2 AI (0.0-0.9); Anti-Jo <0.2 AI (0.0-0.9); Anti-Scleroderma-70 AB <0.2 AI (0.0-0.9); RNP Ab 0.2 AI (0.0-0.9); SJOGREN'S Anti-SS-A test < 0.2 AI (0.0-0.9); SJOGREN'S Anti-SS-B test < 0.2 AI (0.0-0.9); Smith Ab <0.2 AI (0.0-0.9)
[2022-05-26 16:08] LABS: Cytoplasmic Ab (C-ANCA) <1:20 titer (Neg:<1:20)
[2022-05-27 12:36] LABS: Anti-dsDNA Ab <1 IU/mL (0-9)
[2022-05-27 14:29] LABS: Perinuclear Ab (P-ANCA) 1:20 titer (Neg:<1:20)
== END 2022-05-24 17:54 | disposition home or self-care (01) ==
LOC: ED 05-23 02:16 → MS3 05-23 02:46
PROVIDERS: Internal Medicine Gastroenterology; Admitting Provider Internal Medicine; Emergency Provider Emergency Medicine; PCP Physician Assistant; Visit Provider Student in an Organized Health Care Education/Training Program
DX: K50.00 Crohn's disease of small intestine without complications (principal); K56.600 Partial intestinal obstruction, unspecified as to cause; K52.9 Noninfective gastroenteritis and colitis, unspecified; I10 Essential (primary) hypertension; Z87.891 Personal history of nicotine dependence; K57.30 Diverticulosis of large intestine without perforation or abscess without bleeding; N13.30 Unspecified hydronephrosis; B34.9 Viral infection, unspecified; N13.4 Hydroureter
CPT/HCPCS: 36415; 74177; 80048; 80053; 81001; 82274; 83630; 83690; 83735; 84100; 85025; 85652; 86140; 86225; 86235; 86256; 87493; 87506; 87635; 96361; 96372; 96374; 99218; 99251; 99284; J7030; J7120; Q9967; A4216; G0378; G0463; U0003; U0005